=== PATIENT | male | born 1965 | race Caucasian/White ===

== ENCOUNTER 2018-01-15 09:36 | Emergency (ER) | payer OTHER ==
[~2018-01-15] VITALS: Ht 172.7 cm; Wt 91.6 kg
[2018-01-15] MEDS ORDERED: TETANUS/DIPHTHERIA TOX ADULT 0.5 ML SYR IM ONE (10:00)
--- NOTE | 2018-01-15 10:46 | Diagnostic Imaging Report ---
PROCEDURE:X-RAY COMPLETE MANDIBLE, FOUR OR MORE VIEWS COMPARISON:None. INDICATIONS:FOREIGN BODY IN LIP FINDINGS: No acute, displaced fracture or dislocation. Temporomandibular joints appear intact. Incidental probable elongated right styloid process. No radiopaque foreign bodies are identified, though the facial soft tissues are incompletely imaged. CONCLUSION: no acute osseous abnormality. No radiopaque foreign body though the facial soft tissues are incompletely imaged on the lateral radiographs. Dictated by: Ever Abrams M.D. on 01/15/2018 at 10:53 Electronically approved by: Ever Abrams M.D. on 01/15/2018 at 10:53
[2018-01-15] MEDS ORDERED: BACITRACIN ZINC 0.9GM TP ONE (11:00)
== END 2018-01-15 10:59 | disposition home or self-care (01) ==
LOC: ER 09:36
DX: S01.511A Laceration without foreign body of lip, initial encounter (principal); W31.89XA Contact with other specified machinery, initial encounter; Y99.0 Civilian activity done for income or pay
CPT/HCPCS: 70110; 90471; 90714; 99283